=== PATIENT | male | born 1995 | race African-American/Black ===

== ENCOUNTER 2017-07-03 18:43 | Emergency (ER) | payer OTHER ==
[~2017-07-03] VITALS: Ht 172.7 cm; Wt 78.2 kg
[2017-07-03 19:12] VITALS: BP 133/72
[2017-07-03] MEDS ORDERED: FLUC10TA PO (20:56)
== END 2017-07-03 21:15 | disposition home or self-care (01) ==
LOC: M ED 18:43
DX: N48.1 Balanitis (principal)

== ENCOUNTER 2017-09-29 15:17 | Emergency (ER) | payer OTHER ==
[~2017-09-29] VITALS: Ht 175.3 cm; Wt 79.5 kg
[~2017-09-29 15:17] MED LIST: FLUC10TA PO
[2017-09-29 18:15] VITALS: BP 149/74
--- NOTE | 2017-09-30 07:29 | REP ---
Right index finger four views : There is no fracture or dislocation. Mineralization and joint spaces are normal. There are no calcifications or foreign bodies. Impression: Negative right index finger . Signed by Ken Watts MD 09/30/2017 07:21 A
== END 2017-09-29 18:25 | disposition home or self-care (01) ==
LOC: M ED 15:17
DX: S63.610A Unspecified sprain of right index finger, initial encounter (principal); X58.XXXA Exposure to other specified factors, initial encounter; Y92.89 Other specified places as the place of occurrence of the external cause; Y93.89 Activity, other specified; Y99.9 Unspecified external cause status

== ENCOUNTER 2017-12-25 13:35 | Emergency (ER) | payer OTHER | END 2017-12-25 15:02 | disposition home or self-care (01) | LOC: M ED 13:35 | DX: S53.401A Unspecified sprain of right elbow, initial encounter (principal); X58.XXXA Exposure to other specified factors, initial encounter; Y92.9 Unspecified place or not applicable; Y93.9 Activity, unspecified | CPT/HCPCS: 73080 ==

== ENCOUNTER 2018-04-20 19:47 | Emergency (ER) | payer OTHER ==
[2018-04-20] MEDS: BACLOFEN 10 MG TAB PO (21:57)
[2018-04-20] MEDS: KETOROLAC TROMETHAMINE 10 MG TAB PO (21:57)
== END 2018-04-20 22:02 | disposition home or self-care (01) ==
LOC: M ED 19:47
DX: S29.012A Strain of muscle and tendon of back wall of thorax, initial encounter (principal); X50.0XXA Overexertion from strenuous movement or load, initial encounter; Y92.89 Other specified places as the place of occurrence of the external cause
CPT/HCPCS: 99283